=== PATIENT | female | born 1995 | race Asian ===

== ENCOUNTER 2025-05-26 18:53 | Inpatient (IN) | payer BC ==
[2025-05-26] MEDS ORDERED: Acetaminophen 500 MG TAB PO PRN (19:33)
[2025-05-26] MEDS ORDERED: Ibuprofen 800 MG TAB PO PRN (19:33)
[2025-05-26] MEDS ORDERED: Carboprost 250 MCG/ML AMP IM PRN (19:33)
[2025-05-26] MEDS ORDERED: Diphenoxylate HCl/Atropine Tablet PO PRN ×2 (19:33)
[2025-05-26] MEDS ORDERED: Lidocaine 1% (PF) 30 ML VIAL SC PRN (19:33)
[2025-05-26] MEDS ORDERED: Tranexamic Acid 1,000 MG/10 ML VIAL IVP PRN (19:33)
[2025-05-26] MEDS ORDERED: Ondansetron PF 4 MG/2 ML Vial IVP PRN ×2 (19:33→20:24)
[2025-05-26] MEDS ORDERED: Methylergonovine 0.2 MG/ML VIAL IM PRN (19:33)
[2025-05-26] MEDS ORDERED: hydrALAZINE 20 MG/ML VIAL SLOW IVP PRN (19:33)
[2025-05-26 19:38] VITALS: BMI 23.6
[2025-05-26] MEDS ORDERED: Penicillin G 2.5 MILL.units 2.5 MILL.UNITS in Premix 1 BAG IVPB SCH (19:45)
[2025-05-26] MEDS ORDERED: Penicillin G Potassium 5 MILL.UNITS in Sodium Chloride 0.9% 100 ML IVPB SCH (19:45)
[2025-05-26] MEDS ORDERED: Oxytocin 30 units/NS 500 ML 500 ML IV SCH (19:45)
[2025-05-26 20:01] LABS: Hematocrit 42.5 % (34.9-44.5); Hemoglobin 14.2 g/dL (12.0-15.5); Mean Corpuscular Hemoglobin 30.4 pg (27.0-33.0); Mean Corpuscular Volume 91.0 fL (81.6-98.3); Platelet Count 132 10x3/uL (150-450); Red Blood Cell (RBC) Count 4.67 10x6/uL (3.90-5.03); White Blood Cell (WBC) Count 17.32 10x3/uL (3.5-10.5)
[2025-05-26] MEDS: fentaNYL/Ropivacaine Epidural 100 ML ONE (20:12)
[2025-05-26] MEDS ORDERED: diphenhydrAMINE 50 MG/ML VIAL IVP PRN (20:24)
[2025-05-26] MEDS ORDERED: Acetaminophen 325 MG TAB PO PRN (20:24)
[2025-05-26 20:26] LABS: Hep B Surf Ag - L&D Non-Reactive S/CO (NonReactive)
[2025-05-26 20:28] LABS: Syphilis Antibody Index 0.08 S/CO (<1.00 Non-Reactive)
[2025-05-26] MEDS ORDERED: fentaNYL 2 mcg/Ropivacaine 0.2% Epidural 100 ML CADD EPIDURAL SCH (20:30)
[2025-05-26] MEDS ORDERED: Communication Order-Pharmacy FS SCH (20:30)
[2025-05-27] MEDS ORDERED: Preparation H Ointment 28 GM TUBE PR PRN (03:32)
[2025-05-27] MEDS ORDERED: Lanolin Ointment 7 GM TUBE TOP PRN (03:32)
[2025-05-27] MEDS ORDERED: hydrALAZINE 20 MG/ML VIAL SLOW IVP PRN (03:32)
[2025-05-27] MEDS ORDERED: Bisacodyl 10 MG SUPP PR PRN (03:32)
[2025-05-27] MEDS ORDERED: Milk Of Magnesia 30 ML UDCUP PO PRN (03:32)
[2025-05-27] MEDS ORDERED: diphenhydrAMINE 25 MG CAP PO PRN (03:32)
[2025-05-27] MEDS: Boostrix 0.5 ML (Tdap) VIAL (>/=7 yrs of age) IM ONE (04:22)
[2025-05-27] MEDS: Ibuprofen 800 MG TAB PO SCH (06:00)
[2025-05-27] MEDS: Ferrous Sulfate 325 MG TAB PO SCH (07:27)
[2025-05-27] MEDS: Benzocaine-Menthol 82.5 ML CAN TOP PRN (08:14)
[2025-05-28 08:58] VITALS: BP 118/75; TEMP 97.9
== END 2025-05-28 14:30 | disposition home or self-care (01) | DRG 807 ==
LOC: CSHLD/OP 18:53 → CSHLD 19:28 → CSHPP 05-27 03:58
PROVIDERS: ADMIT Obstetrics & Gynecology; ATTEND Obstetrics & Gynecology
PROC: 10E0XZZ Delivery of Products of Conception, External Approach (ICD-10-PCS; principal; 2025-05-27)
PROC: 0KQM0ZZ Repair Perineum Muscle, Open Approach (ICD-10-PCS; 2025-05-27)
DX: O48.0 Post-term pregnancy (principal); Z37.0 Single live birth; O70.1 Second degree perineal laceration during delivery; Z3A.40 40 weeks gestation of pregnancy; Z79.899 Other long term (current) drug therapy
CPT/HCPCS: 36415; 51702; 85027; 86780; 86850; 86900; 86901; 87340; 99285; J7120